=== PATIENT | female | born 1940 | race Caucasian/White ===

== ENCOUNTER 2017-11-22 06:04 | Day surgery (SDC) | payer OTHER ==
[~2017-11-22 06:04] MED LIST: MULTI VITAMIN1 EACH PO; PROPRANOLOL HCL20 MG PO; SYNTHROID137 MCG PO
== END 2017-11-22 14:15 | disposition home or self-care (01) ==
LOC: CIR.AMB 06:04
DX: S52.532A Colles' fracture of left radius, initial encounter for closed fracture (principal)
CPT/HCPCS: 25609; 20902; 25118; 25280; C1776

== ENCOUNTER 2018-06-13 07:25 | Day surgery (SDC) | payer OTHER | END 2018-06-13 16:35 | disposition home or self-care (01) | LOC: CIR.AMB 07:25 | DX: S52.532S Colles' fracture of left radius, sequela (principal) ==

== ENCOUNTER 2019-02-16 06:05 | Day surgery (SDC) | payer OTHER | END 2019-02-16 10:45 | disposition home or self-care (01) | LOC: AMB-ENDOS 06:05 | DX: D12.2 Benign neoplasm of ascending colon (principal); K64.1 Second degree hemorrhoids; Z12.11 Encounter for screening for malignant neoplasm of colon ==

== ENCOUNTER → 2020-01-25 | Emergency (ER) | payer OTHER ==
[~2020-01-25] VITALS: Ht 165.1 cm; Wt 72.1 kg
== END | disposition home or self-care (01) ==
LOC: ER 12:26
DX: S40.021A Contusion of right upper arm, initial encounter (principal); W46.0XXA Contact with hypodermic needle, initial encounter; Y93.89 Activity, other specified; Y92.89 Other specified places as the place of occurrence of the external cause; Y99.8 Other external cause status

== ENCOUNTER 2020-02-01 07:52 | Day surgery (SDC) | payer OTHER | END 2020-02-01 11:58 | disposition home or self-care (01) | LOC: AMB-ENDOS 07:52 → CIR.AMB 09:30 → AMB-ENDOS 11:58 | PROVIDERS: ATTEND Colon & Rectal Surgery | DX: K29.60 Other gastritis without bleeding (principal); K44.9 Diaphragmatic hernia without obstruction or gangrene; Z20.828 Contact with and (suspected) exposure to other viral communicable diseases ==